=== PATIENT | male | born 1935 | race Caucasian/White ===

== ENCOUNTER → 2018-03-15 11:17 | Outpatient (CLI) | payer MEDICARE, OTHER, SELFPAY ==
[2018-03-15 12:22] LABS: Anion Gap 5 (5-15); BUN 20 mg/dL (7-18); BUN/Creat Ratio 14.7 RATIO (10-20); Calcium,Total 8.9 mg/dL (8.5-10.1); Chloride 107 mmol/L (98-107); Cholesterol 181 mg/dL (200); Creatinine, Serum 1.36 mg/dL (0.70-1.30); EST Glomerular Filtration Rate 54 mL/min (>60); Est Glom Filt Rate - Afr Amer 65 mL/min (>60); Glucose 90 mg/dL (74-106); High Density Lipoprotein 34 mg/dL; Potassium 3.8 mmol/L (3.5-5.1); Sodium Level 140 mmol/L (136-145); Triglycerides 140 mg/dL; Very Low Density Lipoprotein 28 mg/dL (5-40)
== END ==
PROVIDERS: Family Provider Family Medicine; PCP Family Medicine; Visit Provider Family Medicine
DX: I10 Essential (primary) hypertension (principal)
CPT/HCPCS: 36415; 80048; 80061

== ENCOUNTER 2018-05-06 13:32 | Outpatient (RCR) | payer MEDICARE, OTHER, SELFPAY ==
[2018-05-06 14:01] LABS: Prothrombin Time Fingerstick 36.5 SEC (11.9-14.4)
== END 2018-05-06 15:00 | disposition home or self-care (01) ==
LOC: MTLAB 13:32
PROVIDERS: Family Provider Family Medicine; PCP Family Medicine; Referring Provider Family Medicine; Visit Provider Family Medicine
DX: I48.91 Unspecified atrial fibrillation (principal)
CPT/HCPCS: 36416; 85610

== ENCOUNTER → 2018-09-15 12:53 | Outpatient (CLI) | payer MEDICARE, OTHER, SELFPAY ==
[2018-09-01 09:47] VITALS: BMI 36.3
--- NOTE | 2018-09-15 12:55 | ECHOCS_ITS ---
Reason For Study: Murmur Procedure This was a 2D Doppler, Color Flow transthoracic echocardiogram. Contrast injection was performed. Exam performed in department. Left Ventricle Normal LV size. Severe concentric left ventricular hypertrophy. Left ventricular systolic function is normal. The estimated ejection fraction is 75 %. No regional wall motion abnormalities noted. Right Ventricle Normal RV size. Normal systolic function. Atria The left atrium is moderately enlarged. Normal right atrium. Mitral Valve Mitral valve not well visualized. Tricuspid Valve Normal tricuspid valve. Aortic Valve Trisinus/trileaflet aortic valve. Peak aortic valve gradient 37 mmHg. Mean aortic valve gradient 16 mmHg. Moderate aortic stenosis. Pulmonic Valve Normal pulmonic valve. Great Vessels Normal aortic root. The pulmonary artery is normal size. Normal inferior vena cava. Pericardium/Pleural No pericardial effusion. Medication 22 gauge I.V. with prn adaptor inserted into right arm. Diluted definity 3ml given slow IV push to enhance endocardial definition. MMode/2D Measurements & Calculations LVIDd: 3.2 cm IVSd: 1.9 cm LVOT diam: 2.0 cm LVIDs: 2.4 cm LVPWd: 1.7 cm RVDd: 3.1 cm FS: 25.3 % LVOT area: 3.3 cm2 ACS: 0.65 cm LAV(MOD-bp): 97.0 ml Aortic Valve Planimetry: 0.77 cm2 LAV(MOD-bp) Indexed: 46.1 ml/m2 LAV(MOD-sp2): 95.5 ml LAV(MOD-sp4): 93.9 ml LA A4 area: 28.1 cm2 RA A4 area: 12.2 cm2 Doppler Measurements & Calculations Ao V2 max: 303.6 cm/sec LV V1 max: 74.5 cm/sec SV(LVOT): 41.7 ml Ao max P.9 mmHg LV V1 max P.2 mmHg Ao V2 mean: 175.3 cm/sec LV V1 mean P.3 mmHg Ao mean P.7 mmHg LV V1 mean: 52.8 cm/sec Ao V2 VTI: 51.5 cm LV V1 VTI: 12.6 cm ANDREAS(I,D): 0.81 cm2 ANDREAS(V,D): 0.81 cm2 PA V2 max: 74.2 cm/sec Interpretation Summary Normal LV size. Severe concentric left ventricular hypertrophy. Left ventricular systolic function is normal. The estimated ejection fraction is 75 %. Mean aortic valve gradient 16 mmHg. Moderate aortic stenosis. Ordering Physician: Vamsi Snell Referring Physician: Vamsi Snell Performed By: Norberto Yeboah RCS
== END ==
PROVIDERS: Family Provider Family Medicine; PCP Family Medicine; Referring Provider Internal Medicine Cardiovascular Disease; Visit Provider Internal Medicine Cardiovascular Disease
DX: I35.0 Nonrheumatic aortic (valve) stenosis (principal)
CPT/HCPCS: 93306; Q9957; A4216; C8929

== ENCOUNTER → 2019-09-14 | Outpatient (CLI) | payer MEDICARE, OTHER, SELFPAY ==
[2019-08-26 13:03] VITALS: BMI 34.4
== END | disposition home or self-care (01) ==
LOC: LABSPEC 17:12
PROVIDERS: PCP Internal Medicine Infectious Disease; Referring Provider Otolaryngology; Visit Provider Psychiatry & Neurology Neurology
DX: J32.9 Chronic sinusitis, unspecified (principal)
CPT/HCPCS: 87070; 87077; 87186; 87205